=== PATIENT | male | born 1945 | race Caucasian/White ===

== ENCOUNTER 2020-02-03 13:11 | Inpatient (IN) | payer MEDICARE ==
[~2020-02-03] VITALS: Ht 182.9 cm; Wt 102.1 kg
[2020-02-03 14:10] VITALS: BP 153/95
[2020-02-03 14:29] LABS: HEMATOCRIT 40.2 % (42.0-54.0); HEMOGLOBIN 13.5 g/dL (13.5-17.5); MCHC 33.6 g/dL (31.0-37.0); MCV 92.2 fL (80.0-100.0); MEAN PLATELET VOLUME 10.8 fL (7.4-10.4); NEUTROPHILS 92.9 % (40-80); PLATELET COUNT 189 10x3/uL (130-400); RBC 4.36 10x6/uL (4.20-6.10); RDW 14.9 % (11.5-14.5); WBC 8.1 10x3/uL (4.8-10.8)
[2020-02-03 14:33] LABS: BILIRUBIN NEGATIVE (NEGATIVE); GLUCOSE NEGATIVE (NEGATIVE); KETONE NEGATIVE (NEGATIVE); NITRITE NEGATIVE (NEGATIVE); UROBILINOGEN NORMAL (NORMAL)
[2020-02-03 14:41] LABS: APTT 33.3 SECONDS (22.8-39.4); INR 1.27 (0.85-1.17); PROTIME 15.8 SECONDS (11.6-15.0)
[2020-02-03 14:46] LABS: CALC OSMOLALITY 280 mosm/kg (275-300); CALCIUM 8.7 mg/dL (8.5-10.1); CARBON DIOXIDE 26.5 mmol/L (21.0-32.0); CHLORIDE - SERUM 96 mmol/L (98-107); CREATININE - SERUM 1.3 mg/dL (0.6-1.3); POTASSIUM - SERUM 3.8 mmol/L (3.5-5.1); SODIUM 132 mmol/L (136-145); UREA NITROGEN 54 mg/dL (7-18); eGFR NON AFRICAN AMERICAN 57 mL/min (90-120)
[2020-02-03 14:48] LABS: UDS - AMPHET NEGATIVE QUAL (NEGATIVE); UDS - BARB NEGATIVE QUAL (NEGATIVE); UDS - BENZO NEGATIVE QUAL (NEGATIVE); UDS - COCAINE NEGATIVE QUAL (NEGATIVE); UDS - OPIATE NEGATIVE QUAL (NEGATIVE); UDS - PCP NEGATIVE QUAL (NEGATIVE); UDS - THC NEGATIVE QUAL (NEGATIVE)
[2020-02-03 14:50] LABS: GLUCOSE 111 mg/dL (74-106)
[2020-02-03 15:01] LABS: ALBUMIN 2.4 g/dL (3.4-5.0); ALKALINE PHOSPHATASE 156 U/L (30-120); ALT (SGPT) 151 U/L (10-68); AMYLASE - SERUM 43 U/L (25-115); CREATINE KINASE 46 UL (21-232); LIPASE 131 U/L (73-393); MAGNESIUM - SERUM 2.2 mg/dL (1.8-2.4); PROTEIN - SERUM 7.3 g/dL (6.4-8.2); THYROID STIMULATING HORMONE 1.28 uIU/mL (0.36-3.74)
[2020-02-03 15:03] LABS: TROPONIN-I < 0.017 ng/mL (0.000-0.060)
[2020-02-03 17:35] VITALS: BP 178/98
[2020-02-03 17:50] VITALS: BP 178/98; BMI 30.6
[2020-02-03 20:01] VITALS: BP 168/98
[2020-02-03] MEDS ORDERED: LISINOPRIL10 MG PO (20:59)
[2020-02-03] MEDS ORDERED: NORVASC5 MG PO (20:59)
[2020-02-03] MEDS ORDERED: PLAVIX75 MG PO (20:59)
[2020-02-03] MEDS ORDERED: LIPITOR40 MG PO (20:59)
[2020-02-04] VITALS: BP 153/88
[2020-02-04 04:00] VITALS: BP 148/85
--- NOTE | 2020-02-04 04:10 | NUR ---
PT AMBULATED TO TOILET WITH MINIMAL ASSISTANCE AND CAME BACK TO BED FROM TOILET WITH STANDBY ASSIST ONLY. PT HAD LARGE DARK BROWN STOOL. NO OTHER NEEDS. WILL REASSESS AND CONTINUE TO MONITOR.
[2020-02-04 06:01] LABS: HEMATOCRIT 36.5 % (42.0-54.0); HEMOGLOBIN 12.5 g/dL (13.5-17.5); MCHC 34.2 g/dL (31.0-37.0); MCV 93.4 fL (80.0-100.0); MEAN PLATELET VOLUME 10.6 fL (7.4-10.4); PLATELET COUNT 188 10x3/uL (130-400); RBC 3.91 10x6/uL (4.20-6.10); RDW 14.6 % (11.5-14.5); WBC 7.4 10x3/uL (4.8-10.8)
[2020-02-04 06:18] LABS: ALBUMIN 1.9 g/dL (3.4-5.0); ANION GAP 12.6 mmol/L (8-16); BILIRUBIN - TOTAL 1.71 mg/dL (0.2-1.3); CARBON DIOXIDE 23.5 mmol/L (21.0-32.0); CREATININE - SERUM 1.2 mg/dL (0.6-1.3); POTASSIUM - SERUM 4.1 mmol/L (3.5-5.1); PROTEIN - SERUM 6.2 g/dL (6.4-8.2)
--- NOTE | 2020-02-04 06:45 | NUR ---
ALERT AND ORIENTED, RESTING IN BED WITH EYES OPEN. NO C/O PAIN. NO S/S OF ACUTE DISTRESS NOTED. UP WITH STANDBY ASSIST. MAR CATHETER. SCDS. IV TO LEFT AC, NS INFUSING @ 125ML/HR. SITE PATENT WITHOUT REDNESS OR SWELLING. BED ALARM ON. DENIES ANY NEEDS AT THIS TIME. CALL LIGHT IN REACH. WILL CONTINUE TO MONITOR.
[2020-02-04 08:32] VITALS: BP 144/71
[2020-02-04 12:40] VITALS: BP 140/70
[2020-02-04 13:27] LABS: BILIRUBIN - DIRECT 1.04 mg/dL (0.00-0.30)
[2020-02-04 13:36] LABS: BILIRUBIN - INDIRECT 0.67 mg/dL (0.00-1.00)
[2020-02-04 17:37] VITALS: BP 144/70
--- NOTE | 2020-02-04 18:00 | NUR ---
I have reviewed this patient and I concur with the Shift Assessment completed by the Licensed Practical Nurse today this shift.
--- NOTE | 2020-02-04 18:09 | NUR ---
ALERT AND ORIENTED. NO C/O PAIN. NO S/S OF ACUTE DISTRESS NOTED. DENIES ANY NEEDS AT THIS TIME. CALL LIGHT IN REACH. WILL CONTINUE TO MONITOR.
[2020-02-04 20:01] VITALS: BP 161/87
[2020-02-05] VITALS: BP 168/79
[2020-02-05 04:00] VITALS: BP 165/74
[2020-02-05 04:52] LABS: HEMATOCRIT 35.1 % (42.0-54.0); HEMOGLOBIN 11.7 g/dL (13.5-17.5); LYMPHOCYTES 6.6 % (15-50); MCH 31.1 pg (26.0-34.0); MCHC 33.3 g/dL (31.0-37.0); MCV 93.4 fL (80.0-100.0); MEAN PLATELET VOLUME 10.5 fL (7.4-10.4); NEUTROPHILS 83.3 % (40-80); PLATELET COUNT 194 10x3/uL (130-400); RBC 3.76 10x6/uL (4.20-6.10); RDW 15.2 % (11.5-14.5); WBC 6.9 10x3/uL (4.8-10.8)
[2020-02-05 05:03] LABS: ALBUMIN 1.7 g/dL (3.4-5.0); ALKALINE PHOSPHATASE 145 U/L (30-120); ALT (SGPT) 116 U/L (10-68); BILIRUBIN - TOTAL 1.59 mg/dL (0.2-1.3); CALC OSMOLALITY 282 mosm/kg (275-300); CARBON DIOXIDE 24.3 mmol/L (21.0-32.0); CHLORIDE - SERUM 106 mmol/L (98-107); GLUCOSE 106 mg/dL (74-106); PROTEIN - SERUM 5.5 g/dL (6.4-8.2); SODIUM 137 mmol/L (136-145); UREA NITROGEN 39 mg/dL (7-18); eGFR NON AFRICAN AMERICAN 78 mL/min (90-120)
[2020-02-05 05:10] LABS: POTASSIUM - SERUM 3.3 mmol/L (3.5-5.1)
--- NOTE | 2020-02-05 07:30 | NUR ---
ALERT AND ORIENTED. LUNGS CLEAR BILATERALLY. HEART SOUNDS S1 AND S2 HEARD IN ALL BLANC. BOWEL SOUNDS ACTIVE X 4. SKIN INTACT WITHOUT REDNESS. IV TO LEFT AC PATENT WITHOUT REDNESS. DENIES PAIN. DENIES NEEDS. BED LOW. CALL [place] AND PERSONAL ITEMS IN REACH. WILL CONTINUE TO MONITOR.
[2020-02-05 08:07] VITALS: BP 142/68
[2020-02-05 10:02] VITALS: Ht 182.9 cm; Wt 102.1 kg
--- NOTE | 2020-02-05 11:30 | NUR ---
RESTING IN BED. DENIES NEEDS. WILL CONTINUE TO MONITOR.
[2020-02-05 11:50] VITALS: BP 161/73
--- NOTE | 2020-02-05 13:37 | NUR ---
SPOKE WITH DR HALL ON UNIT ABOUT PATIENT'S URINARY RETENTION AND ORDER TO REMOVE MAR CATHETER. STATES NEED TO REMOVE MAR FOR DC AND SEE IF PATIENT CAN VOID. WILL REMOVE MAR AFTER PATIENT FINISHES LUNCH.
--- NOTE | 2020-02-05 13:46 | NUR ---
MAR REMOVED PER ORDER. DC ORDER PLACED BY MD. STATES IF PATIENT DOES NOT VOID WITHIN 6 HOURS TO NOTIFY MD AND MAY HAVE TO REPLACE MAR. DO NOT DC UNTIL AFTER VOIDING.
--- NOTE | 2020-02-05 14:37 | NUR ---
PATIENT IN ROOM GETTING DRESSED. INFORMED AGAIN THAT HAS TO VOID PRIOR TO LEAVING. STATES ALREADY VOIDED IN URINAL. NO URINE NOTED TO URINAL. STATES "WELL I DID" EVEN THOUGH THERE IS NO URINE. EDUCATION PROVIDED AGAIN AND WILL CONTINUE TO MONITOR.
--- NOTE | 2020-02-05 14:57 | NUR ---
PATIENT VOIDED LARGE AMOUNT IN FLOOR. STATES COULD NOT MAKE IT TO URINAL. WILL GET PAPER SCRUB PANTS FOR DISCHARGE D/T SOILED PANTS.
--- NOTE | 2020-02-05 15:02 | NUR ---
IV REMOVED FROM LEFT AC WITH TIP INTACT.
--- NOTE | 2020-02-05 15:09 | MORECARE ---
CASE MANAGEMENT DISCHARGE SUMMARY PATIENT: CLARE ANDERSON UNIT: [id number] ADM DATE: 02/03/20 AGE: 74 : 46 SEX: M ROOM/BED: D.2224 AUTHOR: PATTIE GRANGER PHYSICIAN: REFERRING PHYSICIAN: DELMI GIANG MD DATE OF SERVICE: 02/05/20 Discharge Plan Patient Name: CLARE ANDERSON Facility: [facility]:[place] : 1945 Planned Disposition: Home with Home Health Anticipated Discharge Date: Discharge Date: Expected LOS: Initial Reviewer: [email or web address] Initial Review Date: 02/05/2020 Generated: 02/05/20 4:09 pm External Providers External Provider: [facility] Next Contact Date: Service Request Date: Service Type: Resolution: Reviewer: Comments: Patient Name: CLARE ANDERSON Page [phone] at 1509 All edits/amendments must be made on the electronic document DICTATION DATE: 02/05/20 1509 CONTRACTING EXECUTIVE: DEAN 02/05/20 1509 RPT#: [id number] DC DATE: STATUS: ADM IN [facility] [address] [place] [address] END OF REPORT
--- NOTE | 2020-02-05 15:17 | MORECARE ---
CASE MANAGEMENT DISCHARGE SUMMARY PATIENT: CLARE ANDERSON UNIT: [id number] ADM DATE: 02/03/20 AGE: 74 : 46 SEX: M ROOM/BED: D.2224 AUTHOR: PATTIE GRANGER PHYSICIAN: REFERRING PHYSICIAN: DELMI GIANG MD DATE OF SERVICE: 02/05/20 Discharge Plan Patient Name: CLARE ANDERSON Facility: [facility]:[place] : 1945 Planned Disposition: Home with Home Health Anticipated Discharge Date: Discharge Date: Expected LOS: Initial Reviewer: [email or web address] Initial Review Date: 02/05/2020 Generated: 02/05/20 4:16 pm Comments DCP- Discharge Planning Updated by [email or web address]: Judy Torres on 02/05/20 2:[address] Patient Name: CLARE ANDERSON Admission Status: ER Accout number: [id number] Admission Date: 02-03-2020 : 1945 Admission Diagnosis: Attending: DELMI GIANG Current LOS: 2 Anticipated DC Date: Planned Disposition: Home with Home Health Primary Insurance: [employer] [facility] PF Discharge Planning Comments: CM met with patient at bedside after explaining CM role and obtaining verbal consent. CM discussed availability / needs of home health, REHAB and medical equipment. STATES HAS DME AT HOME THAT WAS HIS WIFES. SHEFALI SIGNED FOR [facility] . CM FAXING REFERRAL NOW. IMM AND SHEFALI SIGNED. DAUGHTER IS ON HER WAY TO [employer]. CM TO FOLLOW NEEDED. Barker Operator: Judy Torres DCPIA - Discharge Planning Initial Assessment Updated by [email or web address]: Judy Torres on 02/05/20 3:09 pm * Is the patient Alert and Oriented? Yes * PCP ISABEL * Preadmission Environment Home Alone * Other Equipment STATES HAS DME FROM HIS . * Additional services required to return to the preadmission environment? Yes * Can the patient safely return to the preadmission environment? Yes * Has this patient been hospitalized within the prior 30 days at any hospital? No Last DP export: 02/05/20 2:09 p Patient Name: CLARE ANDERSON Page [phone] at 1517 All edits/amendments must be made on the electronic document DICTATION DATE: 02/05/201515 INDUSTRIAL MANAGEMENT TEACHER: DEAN 02/05/201515 RPT#: [id number] DC DATE: STATUS: ADM IN [facility] [address] [place] [address] END OF REPORT
--- NOTE | 2020-02-05 15:23 | NUR ---
DISCHARGE EDUCATION PROVIDED BOTH WRITTEN AND VERBAL. VERBALIZED UNDERSTANDING. DENIES FURTHER QUESTIONS. GIVEN PAPER SCRUB PANTS FOR DC. DAUGHTER COMING TO [place] PATIENT.
--- NOTE | 2020-02-05 15:51 | NUR ---
PATIENT DC HOME WITH DAUGHTER WITH ALL BELONGINGS.
[2020-02-06 10:09] LABS: HEPATITIS C ANTIBODY <0.1 S/CO RAT (0.0-0.9)
--- NOTE | 2020-02-06 14:24 | MORECARE ---
CASE MANAGEMENT DISCHARGE SUMMARY PATIENT: CLARE ANDERSON UNIT: [id number] ADM DATE: 02/03/20 AGE: 74 : 46 SEX: M ROOM/BED: D.2224 AUTHOR: ELKIN,DOC PHYSICIAN: REFERRING PHYSICIAN: DELMI GIANG MD DATE OF SERVICE: 02/06/20 Discharge Plan Patient Name: CLARE ANDERSON Facility: [facility]:[place] : 1945 Planned Disposition: Home with Home Health Anticipated Discharge Date: Discharge Date: 02/05/2020 Expected LOS: Initial Reviewer: [email or web address] Initial Review Date: 02/05/2020 Generated: 02/06/20 3:23 pm Comments DCP- Discharge Planning Updated by [email or web address]: Judy Torres on 02/05/20 2:[address] Patient Name: CLARE ANDERSON Admission Status: ER Accout number: [id number] Admission Date: 02-03-2020 : 1945 Admission Diagnosis: Attending: DELMI GIANG Current LOS: 2 Anticipated DC Date: Planned Disposition: Home with Home Health Primary Insurance: [employer] [facility] PF Discharge Planning Comments: CM met with patient at bedside after explaining CM role and obtaining verbal consent. CM discussed availability / needs of home health, REHAB and medical equipment. STATES HAS DME AT HOME THAT WAS HIS WIFES. SHEFALI SIGNED FOR [facility]. CM FAXING REFERRAL NOW. IMM AND SHEFALI SIGNED. DAUGHTER IS ON HER WAY TO [employer]LEVIS[employer]. CM TO FOLLOW NEEDED. Bus Attendant: Judy Torres DCPIA - Discharge Planning Initial Assessment Updated by [email or web address]: Judy Torres on 02/05/20 3:09 pm * Is the patient Alert and Oriented? Yes * PCP ISABEL * Preadmission Environment Home Alone * Other Equipment STATES HAS DME FROM HIS . * Additional services required to return to the preadmission environment? Yes * Can the patient safely return to the preadmission environment? Yes * Has this patient been hospitalized within the prior 30 days at any hospital? No Coverage Notice Reviewer: [email or web address] - Judy Torres Notice Issued Date-Time: 02/05/2020 15:17 Notice Type: IM Discharge Notice Notice Delivered To: Patient Relationship to Patient: Screen Tacker Name: Delivery Method: HAND - Hand Delivered Alem Days: Prior Verbal Notification: Recipient Understood Notice: Yes Recipient Signature: Yes Med Rec Note Co-signed by Attending: Coverage Notice Comment: Reviewer: [email or web address] Sam Torres Notice Issued Date-Time: 02/05/2020 15:17 Notice Type: Patient Choice Letter Notice Delivered To: Patient Relationship to Patient: Screen Tacker Name: Delivery Method: - Alem Days: Prior Verbal Notification: Recipient Understood Notice: Recipient Signature: Med Rec Note Co-signed by Attending: Coverage Notice Comment: Last DP export: 02/05/20 2:17 p Patient Name: CLARE ANDERSON Page [phone] at 1424 All edits/amendments must be made on the electronic document DICTATION DATE: 02/06/201422 GOVERNMENT RELATIONS MANAGER: DEAN 02/06/20 142 RPT#: [id number] DC DATE:02/05/20 STATUS: DIS IN [facility] [address] [place] [address] END OF REPORT
[2020-02-07 14:09] LABS: EHRLICHIA CHAFF IGG Negative (Neg:<1:64); EHRLICHIA CHAFF IGM Negative (Neg:<1:20); HGE IGG TITER Negative (Neg:<1:64); HGE IGM TITER Negative (Neg:<1:20)
[2020-02-08 16:08] LABS: RMSF IGM 0.21 index (0.00-0.89)
== END 2020-02-05 15:52 | disposition home health service (06) | DRG 441 ==
LOC: D.ER 13:11 → D.MS 16:24
PROVIDERS: Family Medicine; Surgery; ADMIT Family Medicine; ATTEND Family Medicine
DX: B17.9 Acute viral hepatitis, unspecified (principal); G93.41 Metabolic encephalopathy; I10 Essential (primary) hypertension; I25.10 Atherosclerotic heart disease of native coronary artery without angina pectoris; I73.9 Peripheral vascular disease, unspecified; R14.0 Abdominal distension (gaseous)

== ENCOUNTER 2020-12-22 11:46 | Inpatient (IN) | payer MEDICARE ==
[~2020-12-22] VITALS: Ht 182.9 cm; Wt 93.0 kg
[~2020-12-22 11:46] MED LIST: LIPITOR40 MG PO; LISINOPRIL10 MG PO; NORVASC5 MG PO; PLAVIX75 MG PO
[2020-12-22] MEDS ORDERED: LINZESS145 MCG PO (11:54)
[2020-12-22] MEDS ORDERED: HYDROCHLOROTH12.5 M1 PO (11:54)
[2020-12-22 12:12] LABS: BASOPHILS 0.6 % (0-2); EOSINOPHILS 1.5 % (0-7); HEMATOCRIT 46.7 % (42.0-54.0); HEMOGLOBIN 15.8 g/dL (13.5-17.5); IMMATURE GRANULOCYTES 0.3 % (0-5); LYMPHOCYTE ABS# 1.51 10x3/uL (1.32-3.57); MCH 32.4 pg (26.0-34.0); MCHC 33.8 g/dL (31.0-37.0); MCV 95.7 fL (80.0-100.0); MEAN PLATELET VOLUME 9.9 fL (7.4-10.4); MONOCYTES 9.7 % (2-11); NEUTROPHIL ABS# 6.78 10x3/uL (1.78-5.38); NEUTROPHILS 71.9 % (40-80); RBC 4.88 10x6/uL (4.20-6.10); RDW 12.8 % (11.5-14.5); WBC 9.4 10x3/uL (4.8-10.8)
[2020-12-22 12:21] LABS: PLATELET COUNT 289 10x3/uL (130-400)
[2020-12-22 12:25] LABS: CALC OSMOLALITY 287 mosm/kg (275-300); CALCIUM 9.8 mg/dL (8.5-10.1); CARBON DIOXIDE 24.9 mmol/L (21.0-32.0); CHLORIDE - SERUM 103 mmol/L (98-107); CREATININE - SERUM 1.4 mg/dL (0.6-1.3); GLUCOSE 109 mg/dL (74-106); POTASSIUM - SERUM 3.9 mmol/L (3.5-5.1); SODIUM 139 mmol/L (136-145); UREA NITROGEN 39 mg/dL (7-18); eGFR NON AFRICAN AMERICAN 53 mL/min (90-120)
[2020-12-22 12:30] LABS: ALBUMIN 3.9 g/dL (3.4-5.0); ALKALINE PHOSPHATASE 86 U/L (30-120); ALT (SGPT) 23 U/L (10-68); AMYLASE - SERUM 133 U/L (25-115); BILIRUBIN - TOTAL 0.24 mg/dL (0.2-1.3); LIPASE 818 U/L (73-393); PROTEIN - SERUM 8.5 g/dL (6.4-8.2)
[2020-12-22 12:31] LABS: TROPONIN-I < 0.017 ng/mL (0.000-0.060)
--- NOTE | 2020-12-22 12:35 | NUR ---
TO CT VIA STRETCHER WITH SILVER LAP MACHINE TENDER
--- NOTE | 2020-12-22 12:36 | NUR ---
PT TO CT VIA STRETCHER.
[2020-12-22 14:14] LABS: BILIRUBIN NEGATIVE (NEGATIVE); KETONE NEGATIVE (NEGATIVE); NITRITE NEGATIVE (NEGATIVE); UROBILINOGEN NORMAL mg/dL (< 2)
--- NOTE | 2020-12-22 15:15 | NUR ---
PATIENT IN ROOM FROM ER. TALKING ON TELEPHONE. FREE FROM SIGNS OF DISTRESS. BED LOW POSITION, CALL LIGHT IN REACH. WILL CONTINUE TO MONITOR.
[2020-12-22 15:26] VITALS: BP 144/93; BMI 27.8
[2020-12-22 16:12] VITALS: BP 168/84
--- NOTE | 2020-12-22 17:46 | NUR ---
IN BED. DENIES NEEDS AT THIS TIME. BED LOW POSITION, CALL LIGHT IN REACH. WILL CONTINUE TO MONITOR.
[2020-12-22 23:34] VITALS: BP 187/61
--- NOTE | 2020-12-23 01:27 | NUR ---
I have reviewed this patient and I concur with the Shift Assessment completed by the Licensed Practical Nurse today this shift.
[2020-12-23 05:39] LABS: BASOPHILS 1.1 % (0-2); EOSINOPHILS 5.7 % (0-7); HEMATOCRIT 42.2 % (42.0-54.0); HEMOGLOBIN 13.8 g/dL (13.5-17.5); IMMATURE GRANULOCYTES 0.1 % (0-5); LYMPHOCYTE ABS# 1.92 10x3/uL (1.32-3.57); MCH 31.4 pg (26.0-34.0); MCHC 32.7 g/dL (31.0-37.0); MCV 96.1 fL (80.0-100.0); MEAN PLATELET VOLUME 9.9 fL (7.4-10.4); MONOCYTES 9.2 % (2-11); NEUTROPHIL ABS# 4.27 10x3/uL (1.78-5.38); NEUTROPHILS 57.9 % (40-80); PLATELET COUNT 258 10x3/uL (130-400); RBC 4.39 10x6/uL (4.20-6.10); RDW 12.7 % (11.5-14.5); WBC 7.4 10x3/uL (4.8-10.8)
[2020-12-23 06:19] VITALS: BP 137/72
[2020-12-23 06:27] LABS: ALBUMIN 3.1 g/dL (3.4-5.0); ALKALINE PHOSPHATASE 68 U/L (30-120); BILIRUBIN - TOTAL 0.39 mg/dL (0.2-1.3); CALCIUM 8.2 mg/dL (8.5-10.1); CARBON DIOXIDE 24.2 mmol/L (21.0-32.0); CHLORIDE - SERUM 106 mmol/L (98-107); GLUCOSE 81 mg/dL (74-106); LIPASE 629 U/L (73-393); POTASSIUM - SERUM 3.6 mmol/L (3.5-5.1); PROTEIN - SERUM 6.8 g/dL (6.4-8.2); SODIUM 139 mmol/L (136-145)
[2020-12-23 06:29] LABS: ALT (SGPT) 16 U/L (10-68); AMYLASE - SERUM 93 U/L (25-115); CALC OSMOLALITY 279 mosm/kg (275-300); CREATININE - SERUM 0.8 mg/dL (0.6-1.3); UREA NITROGEN 22 mg/dL (7-18); eGFR NON AFRICAN AMERICAN > 90 mL/min (90-120)
--- NOTE | 2020-12-23 07:29 | NUR ---
PATIENT AWAKE THIS MORNING, STATES PAIN MEDICATION USUALLY WEARS OFF ABOUT 6 HOURS AFTER ADMINISTRATION ENCOURAGED PATIENT TO REQUEST IT BEFORE IT GETS TOO BAD. GAVE PATIENT WASH RAGS AND BATH CLOTHS TO WASH UP WITH THIS MORNING PER REQUEST. CONTINUE WITH PLAN OF CARE
--- NOTE | 2020-12-23 07:55 | HP ---
PATIENT: CLARE NADERSON MEDICAL RECORD: [id number] ACCOUNT: [id number] LOCATION:[id number] : [birth year] ADMISSION DATE: 12/22/20 PCP: HONORIO HALL HISTORY AND PHYSICAL EXAMINATION REASON FOR ADMISSION: Abdominal pain. HISTORY OF PRESENT ILLNESS: The patient is a 75-year-old male with history of hypertension, peripheral vascular disease, and moderate alcohol intake, who has noticed about 3 weeks ago, intermittent abdominal pain, especially after eating. He also notes his blood pressure got up quite a bit since that time. He had seen Dr. Hall, who was addressing his blood pressure problem and then came in the office 2 days prior to this admission complaining of increasing abdominal pain. It was felt due to constipation, but he says he noted that he has not been that constipated. Pain became worse last night and came to the Emergency Room this morning. He has had some nausea without vomiting. He stated the pain was cramping, severe when it occurs, usually after eating will radiate into his back. He denies any weight loss or fever. He says he drinks 2 highballs a day up to the last 3 weeks when he stopped altogether. No history of DTs. He was hospitalized in January of 2020 for abdominal distention. Had surgical consultation at that time. His liver functions were elevated. He had a PIPIDA scan that was normal and thought that his liver functions were elevated due to atorvastatin, which was discontinued. He had lab drawn in the office 2 days ago with amylase and lipase showing minimal elevation of less than 200 units; however, in ER today, his amylase is 133 and lipase is up to 818. Liver functions are normal, but he is in quite a bit of discomfort. He is now being admitted for acute pancreatitis. He is also on lisinopril, hydrochlorothiazide, which may be exacerbating his symptoms. PAST MEDICAL HISTORY: Peripheral vascular disease, having stents placed in his left lower extremity, essential hypertension, alcohol excess, but denies history of DTs or alcoholism, history of hepatitis, coronary artery disease, cataracts, BPH, hearing difficulty, nicotine excess. SURGICAL HISTORY: Stents placed in his left superficial femoral artery remotely in the left leg. He has had inguinal hernia repair times 2 on the right, hemorrhoidectomy. FAMILY HISTORY: Mother in her 90s, had heart disease, hypertension. Father , had diabetes. One sister with cancer, type unknown. SOCIAL HISTORY: His daughter living in town. 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 He drinks 1-2 highballs a day, but none in the last 3 weeks. Still smokes a pack of cigarettes a day. CURRENT MEDICATIONS: MiraLax 17 grams p.o. daily, HCTZ 12.5 mg q.a.m., amlodipine 10 mg a day, hydralazine 50 mg t.i.d., lisinopril 20 mg daily, Rolaids p.r.n., Plavix 75 mg daily. I switched the hydralazine to 1 tablet three times a day as needed for blood pressure over 160. REVIEW OF SYSTEMS: GENERAL: He felt well until 3 weeks ago and he has had poor appetite. No fever or weight loss. HEENT: No recent visual change, sinus congestion, sore throat. He does have difficulty hearing. HISTORY AND PHYSICAL [id number] CLARE ANDERSON RESPIRATORY: Denies shortness of breath, cough, sputum production. CARDIOVASCULAR: Denies chest pain, palpitations, PND, orthopnea, claudication. GASTROINTESTINAL: He has had nausea without vomiting. He has had abdominal bloating after eating. He said his stools have been floating on top of the toilet water and somewhat greasy. He has not noticed any blood per rectum or melena. MUSCULOSKELETAL: Denies arthralgias. INTEGUMENT: No recent rash or itching. GENITOURINARY: Has nocturia twice nightly and slow urine stream. PSYCHIATRIC: Denies depressed mood. NEUROLOGIC: No seizures or memory loss. LABORATORY RESULTS: Shows a white count of 9400 with normal diff, H&H of 15.8 and 46.7 respectively, platelet count 289,000. Chemistry: BUN and creatinine are 39 and 1.4, which is elevated. Glucose is 109. AST and ALT are normal. Alkaline phosphatase is normal. Troponin is normal. Amylase is 133, elevated lipase is 818, elevated. Urinalysis is unremarkable. DIAGNOSTIC DATA: CT of the abdomen and pelvis showed scarring in the lung bases. Liver, gallbladder, spleen and left adrenal gland are unremarkable. Two nodules in the right adrenal gland are unchanged from prior. Fat stranding of the pancreatic head and uncinate process without pseudocyst. Normal caliber appendix, prostate enlargement 6.5 cm consistent with acute pancreatitis. ASSESSMENT: Acute pancreatitis. Potential etiologies are alcohol excess, diuretics, RYLIE inhibitors or gallbladder disease. He had a negative gallbladder workup a year ago, was found to have hepatitis. I cannot locate serum test for what type he had. Essential hypertension, volatile recently; peripheral vascular disease; history of coronary artery disease, hypertension. PLAN: We hold n.p.o. except for required oral medications. Schedule gallbladder ultrasound in the morning and if unremarkable, PIPIDA scan, GI consult if indicated. TRANSINT:[id number] Voice Confirmation ID: [id number] DOCUMENT ID: [id number] EUNICE HOLLIDAY MD at 0755 CC: [id number] DICTATION DATE: 12/22/20 1535 HEAD OF STORE OPERATIONS: 12/22/20 1608 ADM IN [facility] [address] [place] [id number]
[2020-12-23 08:56] VITALS: BP 138/70
--- NOTE | 2020-12-23 09:47 | NUR ---
I have reviewed this patient and I concur with the Shift Assessment completed by the Licensed Practical Nurse today this shift.
[2020-12-23 12:50] VITALS: BP 156/82
[2020-12-23 14:11] VITALS: Ht 182.9 cm; Wt 93.0 kg
[2020-12-23 17:29] VITALS: BP 165/81
[2020-12-23 20:00] VITALS: BP 131/60
[2020-12-24] VITALS: BP 145/75
[2020-12-24 04:00] VITALS: BP 147/78
[2020-12-24 05:33] LABS: BASOPHILS 0.6 % (0-2); EOSINOPHILS 5.3 % (0-7); HEMATOCRIT 40.3 % (42.0-54.0); HEMOGLOBIN 13.5 g/dL (13.5-17.5); IMMATURE GRANULOCYTES 0.1 % (0-5); LYMPHOCYTE ABS# 1.73 10x3/uL (1.32-3.57); LYMPHOCYTES 24.6 % (15-50); MCH 31.5 pg (26.0-34.0); MCHC 33.5 g/dL (31.0-37.0); MCV 94.2 fL (80.0-100.0); MONOCYTES 8.4 % (2-11); PLATELET COUNT 237 10x3/uL (130-400); RBC 4.28 10x6/uL (4.20-6.10); RDW 12.4 % (11.5-14.5)
[2020-12-24 05:49] LABS: ALBUMIN 2.8 g/dL (3.4-5.0); ALKALINE PHOSPHATASE 63 U/L (30-120); ALT (SGPT) 16 U/L (10-68); BILIRUBIN - TOTAL 0.28 mg/dL (0.2-1.3); CALCIUM 8.2 mg/dL (8.5-10.1); CHLORIDE - SERUM 106 mmol/L (98-107); CREATININE - SERUM 0.7 mg/dL (0.6-1.3); POTASSIUM - SERUM 3.4 mmol/L (3.5-5.1); PROTEIN - SERUM 6.3 g/dL (6.4-8.2); SODIUM 137 mmol/L (136-145); eGFR NON AFRICAN AMERICAN > 90 mL/min (90-120)
[2020-12-24 05:50] LABS: CALC OSMOLALITY 272 mosm/kg (275-300); GLUCOSE 70 mg/dL (74-106); LIPASE 359 U/L (73-393); UREA NITROGEN 16 mg/dL (7-18)
--- NOTE | 2020-12-24 07:05 | NUR ---
PATIENT SITTING UP IN BED READY FOR PIPPIDA SCAN. PATIENT IS WORRIED HE WILL MISS BREAKFAST. ASSURED PATIENT I WILL ORDER A TRAY SOON HE RETURNED. NO OTHER NEEDS AT THIS TIME. CONTINUE WITH PLAN OF CARE
--- NOTE | 2020-12-24 07:28 | NUR ---
I have reviewed this patient and I concur with the Shift Assessment completed by the Licensed Practical Nurse today this shift.
--- NOTE | 2020-12-24 07:54 | NUR ---
CALLED [facility] AND SPOKE TO DUNG IN [place] TO ESTIMATED TIME FOR SCAN, PER DUNG [place] HAS 2 OTHER CASES BEFORE HIM SO IT MAY BE AROUND 11 AND PATIENT NEEDS TO REMAIN NPO AND NO PAIN MEDICATIONS UNTIL THEN. CONTTINUE WITH PLAN OF CARE
[2020-12-24 09:55] VITALS: BP 165/79
[2020-12-24 10:11] LABS: HEPATITIS C ANTIBODY <0.1 S/CO RAT (0.0-0.9)
--- NOTE | 2020-12-24 11:29 | NUR ---
PATIENT VERY IRRITATED HE DID NOT GET TO EAT BREAKFAST DUE TO WAITING FOR SCAN, PATIENT LAB WORK THIS MORNING IN NORMAL RANGE, CALLED HONORIO IN [place] PATIENT WAS TOLD SCAN WOULD BE AROUND 11, TECH HERE NOW TO GET PATIENT. CONTINUE WITH PLAN OF CARE
--- NOTE | 2020-12-24 13:16 | NUR ---
PATIENT HAS RETURNED FROM SCAN, WILL ADMINISTER PRN PAIN MEDICATION PER REQUEST. NO OTHER NEEDS AT THIS TIME
--- NOTE | 2020-12-24 15:18 | NUR ---
PATIENT ON CL, WOULD LIKE TO BE DC HOME BEFORE IT GETS TOO LATE, INFORMED PATIENT THAT WE ARE STILL AWAITING DR HALL TO MAKE ROUNDS BEFORE WE CAN LET HIM GO. NO OTHER NEEDS AT THIS TIME. CONTINUE WITH PLAN OF care
--- NOTE | 2020-12-24 16:50 | NUR ---
DISCHARGE INSTRUCTIONS REVIEWED AND SIGNED WITH PT, ALL QUESTIONS ANSWERED, PT VERBALIZED UNDERSTANDING, IV REMOVED, TIP INTACT, COVERED WITH GAUZE AND TAPE, PT IN STABLE CONDITION, NO DISTRESS NOTED
[2020-12-24] MEDS ORDERED: NICODERM CQ1 EAC3 TOPICAL (17:05)
== END 2020-12-24 17:30 | disposition home or self-care (01) | DRG 440 ==
LOC: D.ER 11:46 → D.MS 14:03
PROVIDERS: Family Medicine; ADMIT Family Medicine; ATTEND Family Medicine
DX: K85.90 Acute pancreatitis without necrosis or infection, unspecified (principal); I10 Essential (primary) hypertension; I25.10 Atherosclerotic heart disease of native coronary artery without angina pectoris; I73.9 Peripheral vascular disease, unspecified; R79.89 Other specified abnormal findings of blood chemistry; Z72.0 Tobacco use; N40.0 Benign prostatic hyperplasia without lower urinary tract symptoms